=== PATIENT | male | born 1950 | race Caucasian/White ===

== ENCOUNTER 2017-11-27 11:18 | Emergency (ER) | payer MEDICARE ==
[~2017-11-27] VITALS: Ht 200.7 cm; Wt 135.2 kg
--- OUTSIDE RECORDS SUMMARY | 2017-11-27 11:22 | XMS REPORT ---
Author Author [facility] Address Unknown Phone Unavailable Care Team Providers Care Hemodialysis Charge Nurse Name Role Phone ELÍAS LEE Unavailable Unavailable Problems This patient has no known problems. Allergies, Adverse Reactions, Alerts This patient has no known allergies or adverse reactions. Medications This patient has no known medications. Results Test Description Test Time Test Comments Text Results Atomic Results Result Comments MRI KNEE LEFT WO [place] [address] Patient Name: KRISTI RIVAS MR #: [id number] : 1950 Age/Sex: 66/M Req #: [id number] [facility] Physician: Ordered by: ELÍAS LEE MD Report #: [id number] Location: MRI Room/Bed: Procedure: [id number] MRI/MRI KNEE LEFT WO Exam Date: 10/13/16 Exam Time: 1445 REPORT STATUS: Signed TECHNIQUE: Magnetic resonance imaging of the LEFT KNEE was performed WITHOUT injected contrast. HISTORY: Tear of lateral meniscus, medial meniscus tear, pain lateral side of left knee, injury August 27, 2016 COMPARISON: None available. FINDINGS: LIGAMENTS AND TENDONS: ACL: Intact PCL: Intact Collateral ligaments: Intact Iliotibial band: Unremarkable Popliteal tendon: Intact Extensor mechanism: Intact JOINT: Menisci: Medial: Intact Lateral: Intact Articular Cartilage: Medial Compartment: Low-grade erosion of the weightbearing cartilage. Lateral Compartment: No focal defect. Patellofemoral Compartment: Diffuse patellar cartilage erosion with foci of high-grade to full-thickness cartilage loss. Joint Fluid: A trace effusion with synovitis. A 1.6 cm (AP) x 2 cm (ML) x 1.8 cm (CC) ossified body within a minimally distended multilobulated Caballero's cyst. BONES: Curvilinear subchondral hypointensity at the posterior weightbearing surface of the lateral femoral condyle with prominent adjacent bone marrow edema. SOFT TISSUES: Moderate soft tissue edema adjacent to the posterior aspect of the lateral femoral condyle. IMPRESSION: 1. An incompletely healed, nondisplaced, subchondral fracture involving the posterior aspect of the lateral femoral condyle with associated prominent bone marrow contusion and/or reactive edema. 2. Mild medial and patellofemoral compartment osteoarthrosis. Signed by: Dr. Geoffrey Brothers M.D. on 10/14/2016 4:53 PM Dictated By: GEOFFREY BROTHERS DO [id number] Transcribed By: HANNA on 10/14/16 [id number] COPY TO: ELÍAS LEE MD
[2017-11-27] MEDS ORDERED: IBUPROFEN 400 MG TAB PO ONE (11:45)
[2017-11-27] MEDS ORDERED: HYDROCODONE/APAP 10MG-325MG TAB PO ONE (11:45)
[2017-11-27] MEDS ORDERED: ONDANSETRON HCL 4 MG ORAL DISINTEGRATING TAB PO ONE (11:45)
--- NOTE | 2017-11-27 12:41 | Diagnostic Imaging Report ---
EXAM: HIP LEFT 2-3 VW (+/- PELVIS) DATE: 11/27/2017 11:45 AM INDICATION: ^s/p fall fall. COMPARISON: None FINDINGS: 7 views of the pelvis/hips. Degenerative changes lower lumbar spine, SI joints, and bilateral hips present. No acute fracture, subluxation, or avulsion injury identified. Vascular calcifications are noted. IMPRESSION: Degenerative changes as above with no distinct acute fracture. Signed by: Dr. Amado Victor MD on 11/27/2017 12:38 PM
--- NOTE | 2017-11-27 12:42 | Diagnostic Imaging Report ---
EXAM: WRIST COMPLETE LEFT DATE: 11/27/2017 11:45 AM INDICATION: ^s/p fall ^[id number] ^0 fall. COMPARISON: None FINDINGS: Comminuted impacted intra-articular distal radial fracture with mild volar apex angulation and mild to moderate distal displacement of largest fracture fragments. Nondisplaced ulnar styloid fracture present. 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 IMPRESSION: Distal radial/ulnar fractures as above. Signed by: Dr. Amado Victor MD on 11/27/2017 12:39 PM
[2017-11-27 13:28] VITALS: BP 119/74
== END 2017-11-27 13:39 | disposition home or self-care (01) ==
LOC: ER 11:18
DX: S52.92XA Unspecified fracture of left forearm, initial encounter for closed fracture (principal); S52.202A Unspecified fracture of shaft of left ulna, initial encounter for closed fracture; S70.02XA Contusion of left hip, initial encounter; W18.39XA Other fall on same level, initial encounter; Y92.008 Other place in unspecified non-institutional (private) residence as the place of occurrence of the external cause; I51.9 Heart disease, unspecified; I48.91 Unspecified atrial fibrillation
CPT/HCPCS: 99284